=== PATIENT | female | born 1940 | race Caucasian/White ===

== ENCOUNTER 2017-10-17 05:27 | Inpatient (IN) | payer MEDICARE, OTHER ==
[2017-10-17 06:23] LABS: Hemoglobin 15.8 g/dL (12.0-16.0); Mean Corpuscular HGB CONC 34.2 g/dL (32.0-36.0); Mean Corpuscular Hemoglobin 26.1 pg (27.0-31.0); Mean Corpuscular Volume 76.3 fl (81.0-99.0); Mean Platelet Volume 7.7 fL (7.4-10.4); Platelet Count 187 thou/uL (130-400); RBC Distribution Width 11.7 % (11.5-14.5); Red Blood Cell (RBC) Count 6.04 mill/uL (4.20-5.40); White Blood Cell (WBC) Count 13.6 thou/uL (4.8-10.8)
[2017-10-17 06:32] LABS: ALT (SGPT) 7 U/L (8-55); AST (SGOT) 10 U/L (5-34); Albumin 3.7 g/dL (3.4-4.8); Alkaline Phosphatase 145 U/L (40-150); Anion Gap 15 mmol/L (10-20); BUN (Urea Nitrogen) 20 mg/dL (9.8-20.1); Bilirubin, Total 0.3 mg/dL (0.2-1.2); Calc. Creatinine Clearance 0 mL/min (70-130); Calcium 9.8 mg/dL (7.8-10.44); Carbon Dioxide 26 mmol/L (23-31); Chloride 97 mmol/L (98-107); Estimated GFR-MDRD 50; Globulin 3.4 g/dL (2.4-3.5); Glucose 460 mg/dL (83-110); Magnesium 1.7 mg/dL (1.6-2.6); Potassium 3.9 mmol/L (3.5-5.1); Protein, Total 7.1 g/dL (6.0-8.3); Sodium 134 mmol/L (136-145)
[2017-10-17 06:37] LABS: CKMB 0.4 ng/mL (0-6.6); Troponin I Less than 0.010 ng/mL (< 0.028)
[2017-10-17 06:38] LABS: #Basophils 0.1 thou/uL (0.0-0.2); #Eosinphils 0.2 thou/uL (0.0-0.7); #Lymphocytes 2.3 thou/uL (1.20-3.40); #Monocytes 1.3 thou/uL (0.11-0.59); #Neutrophils 9.7 thou/uL (1.40-6.50); %Basophils 0.9 % (0.0-1.0); %Eosinophils 1.6 % (0.0-10.0); %Lymphocytes 16.9 % (21.0-51.0); %Monocytes 9.4 % (0.0-10.0); %Neutrophils 71.3 % (42.0-75.0)
[2017-10-17 06:39] LABS: RBC Morphology Normal
[2017-10-17 06:53] LABS: Bilirubin Negative (Negative); Blood, Urine Negative (Negative); Clarity CLEAR (Clear); Glucose, Urine (Dipstick) >=1000 mg/dL (Negative); Leukocyte Negative (Negative); Nitrite Negative (Negative); Protein, Urine (Dipstick) Negative (Neg-Trace); Specific Gravity, Urine 1.017 (1.002-1.036); Urobilinogen 0.2 mg/dL (0.2-1.0)
[2017-10-17] MEDS ORDERED: Bisacodyl 5 MG TAB PO PRN (08:10)
[2017-10-17] MEDS ORDERED: Acetaminophen 650 MG Suppository PR PRN (08:10)
--- NOTE | 2017-10-17 08:50 | CT ---
PRELIMINARY REPORT/[facility]/EMERGENCY AFTER HOURS PROCEDURE: EXAM: CT Head Without Intravenous Contrast CLINICAL HISTORY: 77 years old, female; Signs and symptoms; Syncope and collapse; Patient HX: Additional history obtain ed from [facility], 77 y/o f with chf, cad, dm2, HTN, on plavix presents with syncopal episode. States she w as in her kitchen at 3am and became dizzy, then woke up on the ground. Crawled to front door and saw neighbor leaving for work. States she did hit the back of her head. Denies any pain currently and den ies any further injury. TECHNIQUE: Axial computed tomography images of the head/brain without intravenous contrast. COMPARISON: No relevant prior studies available. FINDINGS: Brain: There are chronic appearing lacunar infarcts in the left basal ganglia and left guadarrama radiate white matter. No hemorrhage or acute appearing edema. Ventricles: Unremarkable. No ventriculomegaly. Bones/joints: Benign hyperostosis frontalis is present. No acute fracture. Soft tissues: Unremarkable. Vasculature: There are moderate intracranial atherosclerotic vascular calcifications. Sinuses: There is complete right frontal sinus opacification and there is right ethmoid sinus mucosal thickening. Mastoid air cells: Unremarkable as visualized. No mastoid effusion. IMPRESSION: 1. There is no acute intracranial process. 2. There is frontal and ethmoid sinus disease. This interpretation was based upon the receipt of 57 image(s). Thank you for allowing us to participate in the care of your patient. Dictated and Authenticated by: Juan Hennessy DO 10/17/2017 6:57 AM Central Time ([place] & [place]) FINAL REPORT CT HEAD NONCONTRAST: Date: 10/17/17 FINDINGS/IMPRESSION: I agree with the above provided preliminary interpretation from [facility]. No acute intracranial hemorrhage or mass effect. Mild chronic ischemic disease with superimposed chronic-appearing lacunar infarctions. POS: [facility]
--- NOTE | 2017-10-17 08:52 | RAD ---
FRONTAL VIEW CHEST: Date: 10/17/17 COMPARISON: 01/28/17. INDICATION: Fall with pain, injury. FINDINGS: Postoperative changes of the chest with left-sided cardiac pacing device remain. Cardiac silhouette i s prominent, stable. There is mild prominence of pulmonary vasculature. No effusion or discrete pneum othorax. No lobar consolidation. IMPRESSION: Stable chest without evidence of mild CHF. POS: [facility]
[2017-10-17 09:20] VITALS: BMI 30.8
[2017-10-17] MEDS ORDERED: Dextrose 5% in Water 1,000 ML IV PRN (10:58)
[2017-10-17] MEDS ORDERED: Dextrose 50% Abboject 50 ML SYRINGE SLOW IVP PRN (10:58)
[2017-10-17] MEDS: HumaLOG 300 UNITS/3 ML VIAL SC PRN ×2 (11:46→17:37)
[2017-10-17] MEDS: Enoxaparin Sodium 40 MG/0.4 ML SYRINGE SC SCH (11:46)
[2017-10-17] MEDS ORDERED: Acetaminophen 500 MG TAB PO PRN (14:06)
--- NOTE | 2017-10-17 14:08 | HP ---
PRIMARY CARE PHYSICIAN: Benjamin López M.D. CHIEF COMPLAINT: Syncope. HISTORY OF PRESENT ILLNESS: Ms. Santana is a pleasant 77-year-old lady who was seen at [facility] on 10/17/2017. She reports that she was in her kitchen at 3:00 a.m. and felt dizzy. She tried to hold on to somethi ng. The next thing she remembers, she woke up on the ground. She thinks she may have been unconscio us for approximately 15 minutes. She has a lifeline alert, but she had settled for charging and coul d not reach it. She crawled to the front door and waited for somebody driving by the seizure. She w as finally noticed and she was brought to the emergency room. She reports that she hit the back of h er head on the floor. She denies any chest pain or shortness of breath. She denies any palpitations . She was seen by her cable television program director earlier this week and had her pacemaker interrogated. During that c linical visit, she was found to have elevated blood pressure. Her blood pressure medications were re sumed. Of note, the patient was hospitalized at this facility in 01/2017 for syncope. Her antihypertensives were decreased because it was felt that the cause of syncope was orthostatic hypotension. REVIEW OF SYSTEMS: The following complete review of systems was negative, unless otherwise mentioned in the HPI or below: Constitutional: Weight loss or gain, ability to conduct usual activities. Skin: Rash, itching. Eyes: Double vision, pain. ENT/Mouth: Nose bleeding, neck stiffness, pain, tenderness. Cardiovascular: Palpitations, dyspnea on exertion, orthopnea. Respiratory: Shortness of breath, wheezing, cough, hemoptysis, fever or night sweats. Gastrointestinal: Poor appetite, abdominal pain, heartburn, nausea, vomiting, constipation, or diarrhea. Genitourinary: Urgency, frequency, dysuria, nocturia. Musculoskeletal: Pain, swelling. Neurologic/Psychiatric: Anxiety, depression. Allergy/Immunologic: Skin rash, bleeding tendency. PAST MEDICAL HISTORY: Significant for hypertension, dyslipidemia, coronary artery disease, diabetes mellitus, urinary incontinence, and obesity. PAST SURGICAL HISTORY: Significant for coronary artery bypass graft, hysterectomy, PCI with stent, p acemaker. SOCIAL HISTORY: The patient denies tobacco use, alcohol use or recreational drug use. FAMILY HISTORY: Significant for heart disease. ALLERGIES: MORPHINE. CURRENT MEDICATIONS: Coreg 12.5 mg 2 times a day, Protonix 40 mg daily, Crestor 40 mg daily, lisinop ril/hydrochlorothiazide 20/12.5 mg daily, Plavix 75 mg daily, zolpidem 10 mg at bedtime, escitalopram 20 mg daily, glipizide 5 mg daily, Multaq 400 mg 2 times a day, vitamin E 400 units daily, vitamin B 12 1000 mcg daily, amlodipine 10 mg daily, atorvastatin 80 mg daily. CODE STATUS: I discussed her code status. She is FULL CODE. Her son, Harley, is the surrogate luis antonio on maker. PHYSICAL EXAMINATION: GENERAL: Ms. Santana is awake and alert, not in acute distress. VITAL SIGNS: Blood pressure is 136/64, pulse is 60. She is breathing at rate of 16, and saturating 95% on room air. She is afebrile. She does have a borderline orthostatic hypotension with a supine blood pressure of 136/64 and standing blood pressure of 117/54. EYES: No scleral icterus. No clinical pallor. ENT: Moist mucosal membranes. No oropharyngeal erythema or exudates. NECK: Supple, nontender, normal range of movement. Trachea is midline. RESPIRATORY: Accessory muscles of breathing are not active. Chest wall movements are symmetric bila terally. LUNGS: Clear to auscultation without wheeze, rhonchi or crepitations. CARDIOVASCULAR: S1 and S2 are heard, regular. LUNGS: Peripheral pulses palpable. No carotid bruit. No pericardial rub. ABDOMEN: Soft, nontender, bowel sounds heard, no hepatomegaly, no splenomegaly. NEUROLOGIC: Cranial nerves II-XII intact. Deep tendon reflexes are 2+. MUSCULOSKELETAL: Power is 5/5 in all 4 extremities. Normal range of movement at all major extremity joints. SKIN: No rashes or subcutaneous nodules. No scalp lacerations. PSYCHIATRIC: Normal mood, normal affect, the patient is oriented to person, place, and time. LABORATORY DATA: Ms. Santana's labs and investigations were reviewed. I reviewed her electrocardiogra m, which shows electronic atrial paced rhythm. No ST changes to suggest an acute coronary syndrome. I also reviewed her chest x-ray, which does not show any pulmonary infiltrates. She also had a nonc ontrast CT scan of the brain, which did not show any acute abnormalities. She has leukocytosis with 13,600 white cells, of which 71% are neutrophils, normal hemoglobin, normal platelet count, decreased sodium of 134, normal creatinine, elevated glucose of 460, unremarkable liver profile, normal TSH an d normal cortisol. Troponin I is normal. BNP is normal. Urinalysis is positive for glucose. ASSESSMENT AND PLAN: Ms. Santana is a pleasant 77-year-old lady who was seen at [facility] on 10/17/2017. Her problem list includes: 1. Syncope: Most likely secondary to orthostatic hypotension. She will be admitted to the hospital for further workup including secured entrance monitor. I will decrease her beta linette dose as well as AC E inhibitor dose and hold her thiazide diuretic as well as amlodipine. We will recheck her orthostat ic vitals. 2. Diabetes mellitus. 3. Poorly controlled. We will continue her home medications and start Accu-Cheks and insulin slidin g scale. On further questioning, the patient reports that she really does not watch her diet anymore since her and son , and she does not see a point to eat. Counseled regarding diabetic d iet. 4. Coronary artery disease: Stable. 5. Hypertension: Monitor vital signs, titrate antihypertensives as needed. 6. Dyslipidemia: Continue statin. Many thanks for allowing me to participate in your patient's care. Please feel free to contact me wi th any questions or concerns. LEVEL OF RISK: High. LEVEL OF COMPLEXITY: High.
[2017-10-17] MEDS ORDERED: Naproxen 500 MG TAB PO PRN (15:00)
[2017-10-17] MEDS: Carvedilol 3.125 MG TAB PO SCH (17:37)
[2017-10-17] MEDS: Dronedarone HCl 400 MG TAB PO SCH (17:37)
--- NOTE | 2017-10-17 17:51 | CON ---
DATE OF CONSULTATION: 10/17/2017 HISTORY OF PRESENT ILLNESS: The patient is a 77-year-old woman, who presented after losing consciousness. The patient has a long history of coronary artery disease. She is previously status post coronary artery bypass graft surgery. The patient also has undergone PTCA and stent placement into a saphenous vein to the right coronary artery. The patient has diffuse coronary artery disease and has been treated with medical therapy. She has a long history of noncompliance. She also has history of atrial fibrillation, and has been on Multaq. The patient was in her usual state of health until 2 days ago. She ran out of several medications,and her blood pressure became elevated. She was restarted on several medications. The patient yesterday suddenly lost consciousness. She was standing and fell. She denied having any chest discomfort or palpitations. PAST MEDICAL HISTORY: 1. Coronary artery disease. 2. Atrial fibrillation. 3. Hypertension. 4. Diabetes mellitus. 5. Dyslipidemia. PAST SURGICAL HISTORY: Coronary artery bypass surgery, hysterectomy. SOCIAL HISTORY: Nonsmoker. FAMILY HISTORY: Positive family history of heart disease. ALLERGIES: MORPHINE. MEDICATIONS: See nursing list. REVIEW OF SYSTEMS: No history of easy bruising. The patient denies any bright red blood per rectum, hematuria, or dysuria. Ten-point system is unremarkable. PHYSICAL EXAMINATION: GENERAL: This is an obese woman, in no acute distress. VITAL SIGNS: Blood pressure was 127/51 sitting and 117/55 standing. NECK: Showed no jugular venous distention. LUNGS: Clear to auscultation. HEART: Regular rate and rhythm, normal S1, S2 with a 1/6 systolic murmur. ABDOMEN: Nondistended. EXTREMITIES: Showed trace edema. LABORATORY RESULTS: Revealed her to have sodium 134, potassium 3.9, chloride 97 , bicarbonate 26, BUN 20, creatinine is 1.0, glucose 406. Troponin less than 0.01. Her EKG revealed an electronic atrial pacemaker and ST-T wave abnormality suggestive of ischemia. IMPRESSION: 1. Syncope. 2. History of coronary artery bypass surgery: 3. History of percutaneous transluminal coronary angioplasty and stent placement in the right coronary artery graft. 4. History of pacemaker placement. 5. Dyslipidemia. 6. Hypertension. 7. Diabetes mellitus. 8. Noncompliance. This patient presents with a syncopal episode. She was restarted on several medications after being noncompliant. From a cardiac standpoint, would use lower doses of her medication. We will follow this patient with you through her hospitalization. SCOTT
[2017-10-17] MEDS: diphenhydrAMINE 25 MG CAP PO PRN (19:37)
[2017-10-17] MEDS: Acetaminophen 325 MG TAB PO PRN (19:37)
[2017-10-17] MEDS ORDERED: Atorvastatin Calcium 40 MG TAB PO SCH (21:00)
[2017-10-17] MEDS ORDERED: Non-Formulary Item 1 EACH (Rosuvastatin Calcium [Crestor] 40 MG) PO SCH (21:00)
[2017-10-18] MEDS: Acetaminophen 325 MG TAB PO PRN ×2 (03:04→08:36)
[2017-10-18 04:55] LABS: #Basophils 0.1 thou/uL (0.0-0.2); #Eosinphils 0.2 thou/uL (0.0-0.7); #Monocytes 1.1 thou/uL (0.11-0.59); #Neutrophils 3.4 thou/uL (1.40-6.50); %Basophils 1.1 % (0.0-1.0); %Eosinophils 2.6 % (0.0-10.0); %Lymphocytes 38.3 % (21.0-51.0); %Monocytes 14.3 % (0.0-10.0); %Neutrophils 43.7 % (42.0-75.0); Hemoglobin 14.3 g/dL (12.0-16.0); Mean Corpuscular HGB CONC 33.7 g/dL (32.0-36.0); Mean Corpuscular Hemoglobin 26.5 pg (27.0-31.0); Mean Corpuscular Volume 78.5 fl (81.0-99.0); Platelet Count 162 thou/uL (130-400); RBC Distribution Width 11.8 % (11.5-14.5); Red Blood Cell (RBC) Count 5.41 mill/uL (4.20-5.40); White Blood Cell (WBC) Count 7.7 thou/uL (4.8-10.8)
[2017-10-18 05:12] LABS: Anion Gap 10 mmol/L (10-20); BUN (Urea Nitrogen) 24 mg/dL (9.8-20.1); Calc. Creatinine Clearance 56 mL/min (70-130); Calcium 9.4 mg/dL (7.8-10.44); Carbon Dioxide 31 mmol/L (23-31); Chloride 99 mmol/L (98-107); Estimated GFR-MDRD 46; Glucose 247 mg/dL (83-110); Potassium 3.9 mmol/L (3.5-5.1); Sodium 136 mmol/L (136-145)
[2017-10-18] MEDS: HumaLOG 300 UNITS/3 ML VIAL SC PRN ×2 (05:51→12:11)
[2017-10-18] MEDS: glipiZIDE 5 MG TAB PO SCH (08:34)
[2017-10-18] MEDS: Cyanocobalamin (Vitamin B-12) 1,000 MCG TAB PO SCH (08:35)
[2017-10-18] MEDS: Escitalopram Oxalate 20 mg Tablet PO SCH (08:36)
[2017-10-18] MEDS: Aspirin 325 MG TAB PO SCH (08:36)
[2017-10-18] MEDS: Vitami E (Dl,Tocopheryl Acet) 400 UNITS CAP PO SCH (08:36)
[2017-10-18] MEDS: Clopidogrel Bisulfate 75 MG TAB PO SCH (08:36)
[2017-10-18] MEDS: Dronedarone HCl 400 MG TAB PO SCH ×2 (08:36→16:51)
[2017-10-18] MEDS: Carvedilol 3.125 MG TAB PO SCH (08:37)
[2017-10-18] MEDS: Enoxaparin Sodium 40 MG/0.4 ML SYRINGE SC SCH (08:37)
[2017-10-18] MEDS ORDERED: Lisinopril 2.5 MG TAB PO SCH (09:00)
[2017-10-18] MEDS: Ondansetron ODT 4 MG TAB PO PRN (16:51)
--- NOTE | 2017-10-18 17:26 | PDOC.PN ---
- Subjective Encounter Start Date: 10/18/17 Encounter Start Time: 17:25 Pt seen for followup re: orthostatic hypotension. Denies chest pain, shortness of breath, fevers or chills. - Objective Resuscitation Status: Resuscitation Status FULL:Full Resuscitation MAR Reviewed: Yes Vital Signs & Weight: Vital Signs (12 hours) Temp Pulse Resp BP BP BP BP 10/18/17 16:04 98.1 F 60 18 171/70 H 10/18/17 13:05 62 149/59 H 103/52 L 10/18/17 11:23 98.3 F 60 18 149/66 H 10/18/17 08:35 60 162/74 H 10/18/17 08:13 97.6 F 60 16 10/18/17 07:31 97.6 F 60 16 181/76 H BP Pulse Ox 10/18/17 16:04 96 10/18/17 13:05 145/65 H 10/18/17 11:23 95 10/18/17 08:35 10/18/17 08:13 10/18/17 07:31 95 Weight Weight 185 lb 14.4 oz I&O: 10/17/17 10/18/17 10/19/17 06:59 06:59 06:59 Intake Total 720 Output Total 1475 350 Balance -755 -350 Result Diagrams: 10/18/17 04:29 10/18/17 04:29 Additional Labs: Accuchecks 10/18/17 10/18/17 10/18/17 16:42 11:00 05:38 POC Glucose 147 H 244 H 220 H 10/17/17 19:34 POC Glucose 257 H EKG Reviewed by me: Yes (Tele: electronic A-paced) Phys Exam - Physical Examination Constitutional: NAD HEENT: PERRLA, moist MMs, sclera anicteric, oral pharynx no lesions Neck: no nodes, no JVD, supple, full ROM Respiratory: no wheezing, no rales, no rhonchi, clear to auscultation bilateral Cardiovascular: RRR, no rub Gastrointestinal: soft, non-tender, no distention, positive bowel sounds Neurological: moves all 4 limbs Psychiatric: normal affect, A&O x 3 Skin: no rash Dx/Plan (1) Orthostatic hypotension Code(s): I95.1 - ORTHOSTATIC HYPOTENSION Status: Acute Comment: Cortisol and TSH normal. Apply pressure stockings, continue to monitor orthostatic vitals. Anti hypertensives discontinued. Ambulate patient. Consider midodrine if not improving. (2) Diabetes mellitus Code(s): E11.9 - TYPE 2 DIABETES MELLITUS WITHOUT COMPLICATIONS Status: Chronic Comment: Poor control of blood sugars. Pt reports not following diabetic diet, counseled pt. Does not want to see dietitian. (3) Coronary artery disease Code(s): I25.10 - ATHSCL HEART DISEASE OF [place] CORONARY ARTERY W/O ANG PCTRS Status: Chronic Comment: stable. (4) Hyperlipidemia Code(s): E78.5 - HYPERLIPIDEMIA, UNSPECIFIED Status: Chronic Comment: continue statin. (5) Hypertension Code(s): I10 - ESSENTIAL (PRIMARY) HYPERTENSION Status: Chronic Comment: Antihypertensives discontinued due to orthostatic hypotension and syncope. (6) Syncope Code(s): R55 - SYNCOPE AND COLLAPSE Status: Resolved Comment: No recurrence - Plan * . Review of Systems - Review of Systems Constitutional: negative: fever, chills, sweats, weakness Respiratory: negative: Cough, Shortness of Breath, Hemoptysis, SOB with Excertion, Pleuritic Pain, Wheezing Cardiovascular: light headedness. negative: chest pain, palpitations, orthopnea , paroxysmal nocturnal dyspnea, edema Genitourinary: negative: Dysuria, Frequency, Incontinence, Hematuria, Retention Neurological: Other (Light-headedness) - Medications/Allergies Allergies/Adverse Reactions: Allergies Allergy/AdvReac Type Severity Reaction Status Date / Time morphine Allergy Anaphylaxis Verified 01/29/17 00:24 Medications: Current Medications Acetaminophen (Tylenol) 650 mg PO Q4H PRN PRN Reason: Headache/Fever or Pain Last Admin: 10/18/17 08:36 Dose: 650 mg Acetaminophen (Tylenol) 650 mg [place] Q4H PRN PRN Reason: Headache/Fever or Pain Acetaminophen (Tylenol) 500 mg PO Q8HR PRN PRN Reason: NIGHTTIME PAIN Aspirin (Aspirin) 325 mg PO DAILY [facility] Last Admin: 10/18/17 08:36 Dose: 325 mg Atorvastatin Calcium (Lipitor) 80 mg PO HS [facility] Bisacodyl (Dulcolax) 10 mg PO DAILYPRN PRN PRN Reason: Constipation Clopidogrel Bisulfate (Plavix) 75 mg PO DAILY [facility] Last Admin: 10/18/17 08:36 Dose: 75 mg Cyanocobalamin (Vitamin B-12) 1,000 mcg PO DAILY [facility] Last Admin: 10/18/17 08:35 Dose: 1,000 mcg Dextrose/Water (Dextrose 50%) 25 gm SLOW IVP PRN PRN PRN Reason: Hypoglycemia Diphenhydramine HCl (Benadryl) 25 mg PO Q8H PRN PRN Reason: NIGHTTIME PAIN Last Admin: 10/17/17 19:37 Dose: 25 mg Dronedarone (Multaq) 400 mg PO BID-[facility] Last Admin: 10/18/17 16:51 Dose: 400 mg Enoxaparin Sodium (Lovenox) 40 mg SC 0900 [facility] Last Admin: 10/18/17 08:37 Dose: 40 mg Escitalopram Oxalate (Lexapro) 20 mg PO DAILY [facility] Last Admin: 10/18/17 08:36 Dose: 20 mg Glipizide (Glucotrol) 5 mg PO DAILY-[facility] Last Admin: 10/18/17 08:34 Dose: 5 mg Glucagon (Glucagon) 1 mg IM PRN PRN PRN Reason: Hypoglycemia Dextrose/Water (D5w) 1,000 mls @ 0 mls/hr IV .Q0M PRN; As Directed PRN Reason: Hypoglycemia Insulin Human Lispro (Humalog) 0 units SC .MILD SLIDING SCALE PRN PRN Reason: Mild Correctional Scale Last Admin: 10/18/17 12:11 Dose: 3 unit Naproxen (Naprosyn) 250 mg PO Q8HR PRN PRN Reason: Pain Non-Formulary Medication (Rosuvastatin Calcium [Crestor]) 40 mg PO HS [facility] Ondansetron HCl (Zofran Odt) 4 mg PO Q8HR PRN PRN Reason: Nausea Last Admin: 10/18/17 16:51 Dose: 4 mg Pantoprazole Sodium (Protonix) 40 mg PO [facility] Last Admin: 10/18/17 16:51 Dose: 40 mg Vitamin E (Vitamin E) 400 units PO DAILY [facility] Last Admin: 10/18/17 08:36 Dose: 400 units Zolpidem Tartrate (Ambien) 10 mg PO HS PRN PRN Reason: Insomnia
[2017-10-18] MEDS: diphenhydrAMINE 25 MG CAP PO PRN (21:40)
[2017-10-19 05:27] LABS: #Basophils 0.1 thou/uL (0.0-0.2); #Eosinphils 0.2 thou/uL (0.0-0.7); #Lymphocytes 2.8 thou/uL (1.20-3.40); #Monocytes 1.3 thou/uL (0.11-0.59); #Neutrophils 4.9 thou/uL (1.40-6.50); %Basophils 0.8 % (0.0-1.0); %Eosinophils 2.1 % (0.0-10.0); %Monocytes 14.2 % (0.0-10.0); %Neutrophils 52.9 % (42.0-75.0); Hemoglobin 14.5 g/dL (12.0-16.0); Mean Corpuscular HGB CONC 33.9 g/dL (32.0-36.0); Mean Corpuscular Hemoglobin 26.7 pg (27.0-31.0); Mean Corpuscular Volume 78.8 fl (81.0-99.0); Mean Platelet Volume 8.1 fL (7.4-10.4); Platelet Count 157 thou/uL (130-400); RBC Distribution Width 11.8 % (11.5-14.5); Red Blood Cell (RBC) Count 5.42 mill/uL (4.20-5.40); White Blood Cell (WBC) Count 9.2 thou/uL (4.8-10.8)
[2017-10-19 05:33] LABS: Anion Gap 10 mmol/L (10-20); BUN (Urea Nitrogen) 19 mg/dL (9.8-20.1); Calc. Creatinine Clearance 60 mL/min (70-130); Calcium 9.2 mg/dL (7.8-10.44); Carbon Dioxide 30 mmol/L (23-31); Chloride 102 mmol/L (98-107); Estimated GFR-MDRD 50; Glucose 154 mg/dL (83-110); Potassium 3.9 mmol/L (3.5-5.1); Sodium 138 mmol/L (136-145)
[2017-10-19] MEDS: Vitami E (Dl,Tocopheryl Acet) 400 UNITS CAP PO SCH (08:09)
[2017-10-19] MEDS: Escitalopram Oxalate 20 mg Tablet PO SCH (08:10)
[2017-10-19] MEDS: Cyanocobalamin (Vitamin B-12) 1,000 MCG TAB PO SCH (08:10)
[2017-10-19] MEDS: Aspirin 325 MG TAB PO SCH (08:10)
[2017-10-19] MEDS: Clopidogrel Bisulfate 75 MG TAB PO SCH (08:10)
[2017-10-19] MEDS: Dronedarone HCl 400 MG TAB PO SCH ×2 (08:10→16:46)
[2017-10-19] MEDS: glipiZIDE 5 MG TAB PO SCH (08:10)
[2017-10-19] MEDS: Enoxaparin Sodium 40 MG/0.4 ML SYRINGE SC SCH (09:00)
[2017-10-19] MEDS: HumaLOG 300 UNITS/3 ML VIAL SC PRN ×2 (10:59→16:50)
--- NOTE | 2017-10-19 12:52 | PDOC.PN ---
- Subjective Encounter Start Date: 10/19/17 Encounter Start Time: 10:00 Subjective: no dizziness, still doesn't feel at her baseline -: is worried might pass out after going home -: no chest pain or palp - Objective Resuscitation Status: Resuscitation Status FULL:Full Resuscitation MAR Reviewed: Yes Vital Signs & Weight: Vital Signs (12 hours) Temp Pulse Resp BP BP BP BP 10/19/17 11:42 98.3 F 61 16 153/67 H 10/19/17 08:00 98.2 F 63 18 10/19/17 07:31 98.2 F 63 18 186/79 H 188/79 H 10/19/17 04:22 97.5 F L 65 18 149/71 H BP Pulse Ox 10/19/17 11:42 96 10/19/17 08:00 10/19/17 07:31 192/77 H 98 10/19/17 04:22 98 Weight Weight 185 lb I&O: 10/18/17 10/19/17 10/20/17 06:59 06:59 06:59 Intake Total 720 1080 Output Total 1475 1800 Balance -755 -720 Result Diagrams: 10/19/17 04:44 10/19/17 04:44 Additional Labs: Accuchecks 10/19/17 10/18/17 10/18/17 10:51 19:34 16:42 POC Glucose 226 H 174 H 147 H Phys Exam - Physical Examination HEENT: PERRLA, moist MMs Neck: no JVD, supple Respiratory: no wheezing, no rales Cardiovascular: RRR, no significant murmur Gastrointestinal: soft, non-tender, positive bowel sounds Musculoskeletal: no edema, pulses present Neurological: non-focal, moves all 4 limbs Psychiatric: A&O x 3 Dx/Plan (1) Orthostatic hypotension Code(s): I95.1 - ORTHOSTATIC HYPOTENSION Status: Acute (2) Diabetes mellitus Code(s): E11.9 - TYPE 2 DIABETES MELLITUS WITHOUT COMPLICATIONS Status: Chronic Qualifiers: Diabetes mellitus type: type 2 Diabetes mellitus assisted insulin use: without assisted use Diabetes mellitus complication status: with hyperglycemia Qualified Code(s): E11.65 - Type 2 diabetes mellitus with hyperglycemia (3) Coronary artery disease Code(s): I25.10 - ATHSCL HEART DISEASE OF [place] CORONARY ARTERY W/O ANG PCTRS Status: Chronic Qualifiers: Coronary Disease-Associated Artery/Lesion type: bypass graft [place] vs. transplanted heart: [place] heart Associated angina: without angina Qualified Code(s): I25.810 - Atherosclerosis of coronary artery bypass graft(s) without angina pectoris Comment: stable. (4) Hyperlipidemia Code(s): E78.5 - HYPERLIPIDEMIA, UNSPECIFIED Status: Chronic Qualifiers: Hyperlipidemia type: unspecified Qualified Code(s): E78.5 - Hyperlipidemia , unspecified Comment: continue statin. (5) Hypertension Code(s): I10 - ESSENTIAL (PRIMARY) HYPERTENSION Status: Chronic Qualifiers: Hypertension type: essential hypertension Qualified Code(s): I10 - Essential (primary) hypertension (6) Syncope Code(s): R55 - SYNCOPE AND COLLAPSE Status: Resolved Comment: No recurrence (7) Afib Code(s): I48.91 - UNSPECIFIED ATRIAL FIBRILLATION Status: Chronic Qualifiers: Atrial fibrillation type: chronic Qualified Code(s): I48.2 - Chronic atrial fibrillation - Plan htn is uncontrolled, meds are being optimized by -: on multaq, asp, plavix -: known h/o noncompliance with meds -: to ambulate as tolerated -: change status to inpt, likely dc in am if stable * . Review of Systems - Medications/Allergies Allergies/Adverse Reactions: Allergies Allergy/AdvReac Type Severity Reaction Status Date / Time morphine Allergy Anaphylaxis Verified 01/29/17 00:24 Medications: Current Medications Acetaminophen (Tylenol) 650 mg PO Q4H PRN PRN Reason: Headache/Fever or Pain Last Admin: 10/18/17 08:36 Dose: 650 mg Acetaminophen (Tylenol) 650 mg [place] Q4H PRN PRN Reason: Headache/Fever or Pain Acetaminophen (Tylenol) 500 mg PO Q8HR PRN PRN Reason: NIGHTTIME PAIN Last Admin: 10/18/17 21:39 Dose: 500 mg Amlodipine Besylate (Norvasc) 2.5 mg PO BID [facility] Aspirin (Aspirin) 325 mg PO DAILY [facility] Last Admin: 10/19/17 08:10 Dose: 325 mg Atorvastatin Calcium (Lipitor) 80 mg PO HS [facility] Bisacodyl (Dulcolax) 10 mg PO DAILYPRN PRN PRN Reason: Constipation Clopidogrel Bisulfate (Plavix) 75 mg PO DAILY [facility] Last Admin: 10/19/17 08:10 Dose: 75 mg Cyanocobalamin (Vitamin B-12) 1,000 mcg PO DAILY [facility] Last Admin: 10/19/17 08:10 Dose: 1,000 mcg Dextrose/Water (Dextrose 50%) 25 gm SLOW IVP PRN PRN PRN Reason: Hypoglycemia Diphenhydramine HCl (Benadryl) 25 mg PO Q8H PRN PRN Reason: NIGHTTIME PAIN Last Admin: 10/18/17 21:40 Dose: 25 mg Dronedarone (Multaq) 400 mg PO BID[facility] Last Admin: 10/19/17 08:10 Dose: 400 mg Enoxaparin Sodium (Lovenox) 40 mg SC 0900 [facility] Last Admin: 10/19/17 09:00 Dose: 40 mg Escitalopram Oxalate (Lexapro) 20 mg PO DAILY [facility] Last Admin: 10/19/17 08:10 Dose: 20 mg Glipizide (Glucotrol) 5 mg PO DAILY-[facility] Last Admin: 10/19/17 08:10 Dose: 5 mg Glucagon (Glucagon) 1 mg IM PRN PRN PRN Reason: Hypoglycemia Dextrose/Water (D5w) 1,000 mls @ 0 mls/hr IV .Q0M PRN; As Directed PRN Reason: Hypoglycemia Insulin Human Lispro (Humalog) 0 units SC .MILD SLIDING SCALE PRN PRN Reason: Mild Correctional Scale Last Admin: 10/19/17 10:59 Dose: 3 unit Naproxen (Naprosyn) 250 mg PO Q8HR PRN PRN Reason: Pain Non-Formulary Medication (Rosuvastatin Calcium [Crestor]) 40 mg PO HS [facility] Ondansetron HCl (Zofran Odt) 4 mg PO Q8HR PRN PRN Reason: Nausea Last Admin: 10/18/17 16:51 Dose: 4 mg Pantoprazole Sodium (Protonix) [address] [facility] Last Admin: 10/19/17 10:59 Dose: 40 mg Vitamin E (Vitamin E) 400 units PO DAILY [facility] Last Admin: 10/19/17 08:09 Dose: 400 units Zolpidem Tartrate (Ambien) 10 mg PO HS PRN PRN Reason: Insomnia
[2017-10-19] MEDS: Atorvastatin Calcium 40 MG TAB PO SCH ×3 (15:28→20:11)
[2017-10-19] MEDS ORDERED: Amlodipine 5 MG TAB PO SCH (21:00)
[2017-10-19] MEDS: Zolpidem Tartrate 5 MG TAB PO PRN (22:59)
[2017-10-20 05:00] LABS: #Basophils 0.1 thou/uL (0.0-0.2); #Eosinphils 0.2 thou/uL (0.0-0.7); #Lymphocytes 2.3 thou/uL (1.20-3.40); #Monocytes 1.3 thou/uL (0.11-0.59); #Neutrophils 5.2 thou/uL (1.40-6.50); %Basophils 1.1 % (0.0-1.0); %Eosinophils 1.9 % (0.0-10.0); %Monocytes 14.6 % (0.0-10.0); %Neutrophils 57.4 % (42.0-75.0); Hemoglobin 14.1 g/dL (12.0-16.0); Mean Corpuscular HGB CONC 34.3 g/dL (32.0-36.0); Mean Corpuscular Hemoglobin 26.5 pg (27.0-31.0); Mean Corpuscular Volume 77.1 fl (81.0-99.0); Mean Platelet Volume 7.7 fL (7.4-10.4); Platelet Count 149 thou/uL (130-400); RBC Distribution Width 11.6 % (11.5-14.5); Red Blood Cell (RBC) Count 5.32 mill/uL (4.20-5.40); White Blood Cell (WBC) Count 9.1 thou/uL (4.8-10.8)
[2017-10-20 05:27] LABS: Anion Gap 10 mmol/L (10-20); BUN (Urea Nitrogen) 17 mg/dL (9.8-20.1); Calc. Creatinine Clearance 67 mL/min (70-130); Calcium 9.3 mg/dL (7.8-10.44); Carbon Dioxide 29 mmol/L (23-31); Chloride 102 mmol/L (98-107); Estimated GFR-MDRD 57; Glucose 166 mg/dL (83-110); Potassium 3.9 mmol/L (3.5-5.1); Sodium 137 mmol/L (136-145)
[2017-10-20] MEDS: Enoxaparin Sodium 40 MG/0.4 ML SYRINGE SC SCH (08:24)
[2017-10-20] MEDS: Vitami E (Dl,Tocopheryl Acet) 400 UNITS CAP PO SCH (08:24)
[2017-10-20] MEDS: Amlodipine 5 MG TAB PO SCH ×2 (08:25→20:42)
[2017-10-20] MEDS: Lisinopril 5 MG TAB PO SCH ×2 (08:25→20:43)
[2017-10-20] MEDS: Dronedarone HCl 400 MG TAB PO SCH ×2 (08:26→18:36)
[2017-10-20] MEDS: Aspirin 325 MG TAB PO SCH (08:26)
[2017-10-20] MEDS: glipiZIDE 5 MG TAB PO SCH (08:26)
[2017-10-20] MEDS: Escitalopram Oxalate 20 mg Tablet PO SCH (08:26)
[2017-10-20] MEDS: Clopidogrel Bisulfate 75 MG TAB PO SCH (08:26)
[2017-10-20] MEDS: Cyanocobalamin (Vitamin B-12) 1,000 MCG TAB PO SCH (08:26)
--- NOTE | 2017-10-20 11:19 | PDOC.PN ---
- Subjective Encounter Start Date: 10/20/17 Encounter Start Time: 09:40 Subjective: a bit lethargic this am, says took her usual sleeping pill -: no weakness, is moving all extremities -: no chest pain/palp - Objective MAR Reviewed: Yes Vital Signs & Weight: Vital Signs (12 hours) Temp Pulse Resp BP BP Pulse Ox 10/20/17 08:25 60 10/20/17 07:25 97.3 F L 60 20 177/75 H 98 10/20/17 04:06 98.4 F 61 18 183/75 H 96 Weight Weight 187 lb 8 oz I&O: 10/19/17 10/20/17 10/21/17 06:59 06:59 06:59 Intake Total 360 Output Total 600 Balance -240 Result Diagrams: 10/20/17 04:08 10/20/17 04:08 Additional Labs: Accuchecks 10/19/17 10/19/17 20:23 16:43 POC Glucose 118 H 231 H Phys Exam - Physical Examination HEENT: PERRLA, moist MMs Neck: no JVD, supple Respiratory: no wheezing, no rales Cardiovascular: RRR, no significant murmur Gastrointestinal: soft, non-tender, positive bowel sounds Musculoskeletal: no edema, pulses present Neurological: non-focal, moves all 4 limbs Psychiatric: normal affect, A&O x 3 Dx/Plan (1) Orthostatic hypotension Code(s): I95.1 - ORTHOSTATIC HYPOTENSION Status: Acute Comment: resolving (2) Diabetes mellitus Code(s): E11.9 - TYPE 2 DIABETES MELLITUS WITHOUT COMPLICATIONS Status: Chronic Qualifiers: Diabetes mellitus type: type 2 Diabetes mellitus snf insulin use: without snf use Diabetes mellitus complication status: with hyperglycemia Qualified Code(s): E11.65 - Type 2 diabetes mellitus with hyperglycemia (3) Coronary artery disease Code(s): I25.10 - ATHSCL HEART DISEASE OF [place] CORONARY ARTERY W/O ANG PCTRS Status: Chronic Qualifiers: Coronary Disease-Associated Artery/Lesion type: bypass graft [place] vs. transplanted heart: [place] heart Associated angina: without angina Qualified Code(s): I25.810 - Atherosclerosis of coronary artery bypass graft(s) without angina pectoris Comment: stable. (4) Hyperlipidemia Code(s): E78.5 - HYPERLIPIDEMIA, UNSPECIFIED Status: Chronic Qualifiers: Hyperlipidemia type: unspecified Qualified Code(s): E78.5 - Hyperlipidemia , unspecified Comment: continue statin. (5) Hypertension Code(s): I10 - ESSENTIAL (PRIMARY) HYPERTENSION Status: Chronic Qualifiers: Hypertension type: essential hypertension Qualified Code(s): I10 - Essential (primary) hypertension Comment: uncontrolled (6) Syncope Code(s): R55 - SYNCOPE AND COLLAPSE Status: Resolved Comment: No recurrence (7) Afib Code(s): I48.91 - UNSPECIFIED ATRIAL FIBRILLATION Status: Chronic Qualifiers: Atrial fibrillation type: chronic Qualified Code(s): I48.2 - Chronic atrial fibrillation - Plan increase norvasc 5mg bid, add lisinopril 10mg bid -: d/w -: counselled reg compliance with meds -: dc plan per cardio advice -: sbp around 177 this am * . Review of Systems - Medications/Allergies Allergies/Adverse Reactions: Allergies Allergy/AdvReac Type Severity Reaction Status Date / Time morphine Allergy Anaphylaxis Verified 01/29/17 00:24 Medications: Current Medications Acetaminophen (Tylenol) 650 mg PO Q4H PRN PRN Reason: Headache/Fever or Pain Last Admin: 10/18/17 08:36 Dose: 650 mg Acetaminophen (Tylenol) 650 mg SC Q4H PRN PRN Reason: Headache/Fever or Pain Acetaminophen (Tylenol) 500 mg PO Q8HR PRN PRN Reason: NIGHTTIME PAIN Last Admin: 10/18/17 21:39 Dose: 500 mg Amlodipine Besylate (Norvasc) 5 mg PO BID [facility] [place] Last Admin: 10/20/17 08:25 Dose: 5 mg Aspirin (Aspirin) 325 mg PO DAILY [facility] Last Admin: 10/20/17 08:26 Dose: 325 mg Atorvastatin Calcium (Lipitor) 80 mg PO HS [facility] [place] Last Admin: 10/19/17 20:11 Dose: 80 mg Bisacodyl (Dulcolax) 10 mg PO DAILYPRN PRN PRN Reason: Constipation Clopidogrel Bisulfate (Plavix) 75 mg PO DAILY [facility] [place] Last Admin: 10/20/17 08:26 Dose: 75 mg Cyanocobalamin (Vitamin B-12) 1,000 mcg PO DAILY [facility] [place] Last Admin: 10/20/17 08:26 Dose: 1,000 mcg Dextrose/Water (Dextrose 50%) 25 gm SLOW IVP PRN PRN PRN Reason: Hypoglycemia Diphenhydramine HCl (Benadryl) 25 mg PO Q8H PRN PRN Reason: NIGHTTIME PAIN Last Admin: 10/18/17 21:40 Dose: 25 mg Dronedarone (Multaq) 400 mg PO BID-[facility] Last Admin: 10/20/17 08:26 Dose: 400 mg Enoxaparin Sodium (Lovenox) 40 mg SC 0900 [facility] [place] Last Admin: 10/20/17 08:24 Dose: 40 mg Escitalopram Oxalate (Lexapro) 20 mg PO DAILY [facility] [place] Last Admin: 10/20/17 08:26 Dose: 20 mg Glipizide (Glucotrol) 5 mg PO DAILY-[facility] Last Admin: 10/20/17 08:26 Dose: 5 mg Glucagon (Glucagon) 1 mg IM PRN PRN PRN Reason: Hypoglycemia Dextrose/Water (D5w) 1,000 mls @ 0 mls/hr IV .Q0M PRN; As Directed PRN Reason: Hypoglycemia Insulin Human Lispro (Humalog) 0 units SC .MILD SLIDING SCALE PRN PRN Reason: Mild Correctional Scale Last Admin: 10/19/17 16:50 Dose: 3 unit Lisinopril (Zestril) 5 mg PO BID [facility] [place] Last Admin: 10/20/17 08:25 Dose: 5 mg Naproxen (Naprosyn) 250 mg PO Q8HR PRN PRN Reason: Pain Ondansetron HCl (Zofran Odt) 4 mg PO Q8HR PRN PRN Reason: Nausea Last Admin: 10/18/17 16:51 Dose: 4 mg Pantoprazole Sodium (Protonix) 40 mg PO [facility] Last Admin: 10/20/17 08:26 Dose: 40 mg Vitamin E (Vitamin E) 400 units PO DAILY [facility] Last Admin: 10/20/17 08:24 Dose: 400 units Zolpidem Tartrate (Ambien) 10 mg PO HS PRN PRN Reason: Insomnia Last Admin: 10/19/17 22:59 Dose: 10 mg
[2017-10-20] MEDS: Ondansetron ODT 4 MG TAB PO PRN (13:22)
[2017-10-20] MEDS: Acetaminophen 325 MG TAB PO PRN (13:24)
[2017-10-20] MEDS ORDERED: Atorvastatin Calcium 20 MG TAB PO SCH (21:00)
--- NOTE | 2017-10-20 21:46 | PRG ---
DATE OF SERVICE: 10/20/2017 SUBJECTIVE: Ms. Santana is doing better today. OBJECTIVE: GENERAL: She is awake and alert. VITAL SIGNS: Her blood pressure is still high at 195/81, pulse 62. LUNGS: Clear. CARDIAC: Normal S1, normal S2. ASSESSMENT: 1. Labile hypertension. 2. Recent surgery. PLAN: We will check the pacemaker tomorrow morning then release her home. We will follow as well.
[2017-10-20] MEDS: Zolpidem Tartrate 5 MG TAB PO PRN (22:26)
[2017-10-21] MEDS: glipiZIDE 5 MG TAB PO SCH (08:27)
[2017-10-21] MEDS: Amlodipine 5 MG TAB PO SCH (08:27)
[2017-10-21] MEDS: Dronedarone HCl 400 MG TAB PO SCH (08:27)
[2017-10-21] MEDS: Vitami E (Dl,Tocopheryl Acet) 400 UNITS CAP PO SCH (08:28)
[2017-10-21] MEDS: Escitalopram Oxalate 20 mg Tablet PO SCH (08:28)
[2017-10-21] MEDS: Cyanocobalamin (Vitamin B-12) 1,000 MCG TAB PO SCH (08:28)
[2017-10-21] MEDS: Lisinopril 5 MG TAB PO SCH (08:28)
[2017-10-21] MEDS: Clopidogrel Bisulfate 75 MG TAB PO SCH (08:28)
[2017-10-21] MEDS: Aspirin 325 MG TAB PO SCH (08:29)
[2017-10-21] MEDS: Enoxaparin Sodium 40 MG/0.4 ML SYRINGE SC SCH (08:34)
--- NOTE | 2017-10-21 11:25 | PDOC.PN ---
- Subjective Encounter Start Date: 10/21/17 Encounter Start Time: 08:00 Subjective: feels better, no sob or palp -: is amb in room - Objective MAR Reviewed: Yes Vital Signs & Weight: Vital Signs (12 hours) Temp Pulse Resp BP BP BP Pulse Ox 10/21/17 10:41 158/72 H 10/21/17 08:28 61 10/21/17 08:27 61 10/21/17 08:00 98.2 F 61 18 97 10/21/17 07:35 98.2 F 61 18 183/76 H 97 10/21/17 04:26 98 F 61 24 H 158/70 H 94 L 10/20/17 23:33 61 142/65 H Weight Weight 184 lb 14.4 oz I&O: 10/20/17 10/21/17 10/22/17 06:59 06:59 06:59 Intake Total 360 290 Output Total 600 550 Balance -240 -260 Result Diagrams: 10/20/17 04:08 10/20/17 04:08 Additional Labs: Accuchecks 10/21/17 10/21/17 10/20/17 10:46 04:32 20:43 POC Glucose 196 H 98 144 H 10/20/17 10/20/17 17:27 10:54 POC Glucose 177 H 187 H Phys Exam - Physical Examination HEENT: PERRLA, moist MMs Neck: no JVD, supple Respiratory: no wheezing, no rales Cardiovascular: RRR, no significant murmur Gastrointestinal: soft, non-tender, positive bowel sounds Musculoskeletal: no edema, pulses present Neurological: non-focal, moves all 4 limbs Psychiatric: A&O x 3 Dx/Plan (1) Orthostatic hypotension Code(s): I95.1 - ORTHOSTATIC HYPOTENSION Status: Resolved (2) Diabetes mellitus Code(s): E11.9 - TYPE 2 DIABETES MELLITUS WITHOUT COMPLICATIONS Status: Chronic Qualifiers: Diabetes mellitus type: type 2 Diabetes mellitus local [employer] insulin use: without intermediate use Diabetes mellitus complication status: with hyperglycemia Qualified Code(s): E11.65 - Type 2 diabetes mellitus with hyperglycemia (3) Coronary artery disease Code(s): I25.10 - ATHSCL HEART DISEASE OF [place] CORONARY ARTERY W/O ANG PCTRS Status: Chronic Qualifiers: Coronary Disease-Associated Artery/Lesion type: bypass graft [place] vs. transplanted heart: [place] heart Associated angina: without angina Qualified Code(s): I25.810 - Atherosclerosis of coronary artery bypass graft(s) without angina pectoris Comment: stable. (4) Hyperlipidemia Code(s): E78.5 - HYPERLIPIDEMIA, UNSPECIFIED Status: Chronic Qualifiers: Hyperlipidemia type: unspecified Qualified Code(s): E78.5 - Hyperlipidemia , unspecified Comment: continue statin. (5) Hypertension Code(s): I10 - ESSENTIAL (PRIMARY) HYPERTENSION Status: Chronic Qualifiers: Hypertension type: essential hypertension Qualified Code(s): I10 - Essential (primary) hypertension Comment: uncontrolled (6) Syncope Code(s): R55 - SYNCOPE AND COLLAPSE Status: Resolved Comment: No recurrence (7) Afib Code(s): I48.91 - UNSPECIFIED ATRIAL FIBRILLATION Status: Chronic Qualifiers: Atrial fibrillation type: chronic Qualified Code(s): I48.2 - Chronic atrial fibrillation - Plan for QPD pcm interrogation today -: likely home if above is normal -: htn is getting better, is asymptomatic as to dizziness/palp/chest pain -: to check BP and pulse twice daily, record, and f/u with PCP * . Review of Systems - Medications/Allergies Allergies/Adverse Reactions: Allergies Allergy/AdvReac Type Severity Reaction Status Date / Time morphine Allergy Anaphylaxis Verified 01/29/17 00:24 Medications: Current Medications Acetaminophen (Tylenol) 650 mg PO Q4H PRN PRN Reason: Headache/Fever or Pain Last Admin: 10/20/17 13:24 Dose: 650 mg Acetaminophen (Tylenol) 650 mg MD Q4H PRN PRN Reason: Headache/Fever or Pain Acetaminophen (Tylenol) 500 mg PO Q8HR PRN PRN Reason: NIGHTTIME PAIN Last Admin: 10/18/17 21:39 Dose: 500 mg Amlodipine Besylate (Norvasc) 5 mg PO BID [facility] Last Admin: 10/21/17 08:27 Dose: 5 mg Aspirin (Aspirin) 325 mg PO DAILY [facility] Last Admin: 10/21/17 08:29 Dose: 325 mg Atorvastatin Calcium (Lipitor) 80 mg PO HS [facility] Last Admin: 10/20/17 20:42 Dose: 80 mg Bisacodyl (Dulcolax) 10 mg PO DAILYPRN PRN PRN Reason: Constipation Clopidogrel Bisulfate (Plavix) 75 mg PO DAILY [facility] Last Admin: 10/21/17 08:28 Dose: 75 mg Cyanocobalamin (Vitamin B-12) 1,000 mcg PO DAILY [facility] Last Admin: 10/21/17 08:28 Dose: 1,000 mcg Dextrose/Water (Dextrose 50%) 25 gm SLOW IVP PRN PRN PRN Reason: Hypoglycemia Diphenhydramine HCl (Benadryl) 25 mg PO Q8H PRN PRN Reason: NIGHTTIME PAIN Last Admin: 10/18/17 21:40 Dose: 25 mg Dronedarone (Multaq) 400 mg PO BID-[facility] Last Admin: 10/21/17 08:27 Dose: 400 mg Enoxaparin Sodium (Lovenox) 40 mg SC 0900 [facility] Last Admin: 10/21/17 08:34 Dose: Not Given Escitalopram Oxalate (Lexapro) 20 mg PO DAILY [facility] Last Admin: 10/21/17 08:28 Dose: 20 mg Glipizide (Glucotrol) 5 mg PO DAILY-[facility] Last Admin: 10/21/17 08:27 Dose: 5 mg Glucagon (Glucagon) 1 mg IM PRN PRN PRN Reason: Hypoglycemia Dextrose/Water (D5w) 1,000 mls @ 0 mls/hr IV .Q0M PRN; As Directed PRN Reason: Hypoglycemia Insulin Human Lispro (Humalog) 0 units SC .MILD SLIDING SCALE PRN PRN Reason: Mild Correctional Scale Last Admin: 10/19/17 16:50 Dose: 3 unit Lisinopril (Zestril) 5 mg PO BID [facility] Last Admin: 10/21/17 08:28 Dose: 5 mg Naproxen (Naprosyn) 250 mg PO Q8HR PRN PRN Reason: Pain Ondansetron HCl (Zofran Odt) 4 mg PO Q8HR PRN PRN Reason: Nausea Last Admin: 10/20/17 13:22 Dose: 4 mg Pantoprazole Sodium (Protonix) 40 mg PO [facility] Last Admin: 10/21/17 08:27 Dose: 40 mg Vitamin E (Vitamin E) 400 units PO DAILY [facility] Last Admin: 10/21/17 08:28 Dose: 400 units Zolpidem Tartrate (Ambien) 10 mg PO HS PRN PRN Reason: Insomnia Last Admin: 10/20/17 22:26 Dose: 10 mg
[2017-10-21] MEDS: HumaLOG 300 UNITS/3 ML VIAL SC PRN (11:40)
[2017-10-21 12:02] VITALS: TEMP 98.7
[2017-10-21 12:04] VITALS: BP 167/73
--- NOTE | 2017-10-22 00:31 | DIS ---
DATE OF ADMISSION: 10/17/2017 DATE OF DISCHARGE: 10/21/2017 DISCHARGE DISPOSITION: To home. PRIMARY DISCHARGE DIAGNOSES: Dizziness with orthostatic hypotension, which was severe. SECONDARY DISCHARGE DIAGNOSES: Coronary artery disease, hypertension, diabetes mellitus type 2, dyslipidemia, chronic atrial fibrillation, which is rate controlled. PROCEDURES DONE DURING HOSPITALIZATION: Patient has had CT brain done, which showed no acute intracranial process. There is old lacunar infarct in the left basal ganglia and left guadarrama radiata. Chest x-ray done showed findings of mild volume overload with congestion. H&H 14 and 41, platelet count 149, MCV 77. Discharge BUN and creatinine is 17 and 0.9. TSH 2.10. Cardiac enzymes x1 were negative. BNP 34. DISCHARGE MEDICATIONS: Norvasc 5 mg p.o. twice daily, aspirin 325 mg p.o. daily , Coreg 3.125 mg p.o. twice daily, Plavix 75 mg p.o. daily, Multaq 400 mg p.o. twice daily, Lexapro 20 mg p.o. daily, vitamin B12 of 1000 mcg p.o. daily, glipizide 5 mg p.o. daily, lisinopril 5 mg p.o. twice daily, Protonix 40 mg p.o. daily, Crestor 40 mg p.o. at bedtime, Ambien 10 mg p.o. at bedtime p.r.n. ALLERGIES: MORPHINE. INPATIENT CONSULTS: Dr. Jay/Dr. Calderon for Cardiology. DISCHARGE PLAN: Patient to follow up with primary care physician in [address] Calderon as advised. She needs to check her blood pressures. Her blood pressure and pulse twice daily and record for a period of 10 days to follow up with primary care physician. BRIEF COURSE DURING HOSPITALIZATION: Patient initially felt dizzy in her kitchen around 3 in the morning and next thing she knew she woke up on the ground. She had syncopized for nearly 15 minutes or so. She finally crawled to the front door and managed to flag someone to get to the ER. On arrival in ER, patient has had a complete workup done. She was found to be in severe orthostasis. Her medications were all held and were slowly introduced. She has had extended period of monitoring on telemetry. The patient has remained stable on the current dose of Norvasc, small dose of lisinopril, both twice daily along with Multaq. A small dose of Coreg has been added today. She is otherwise hemodynamically stable and is ambulating in the room and eating well prior to discharge. Please see a face to face documentation on [facility] for the day of discharge. MTDD
== END 2017-10-21 15:22 | disposition home or self-care (01) | DRG 312 ==
LOC: ERS 05:27 → 2SW 07:39 → OBSVTOIN 10-19 11:21
PROVIDERS: ADMIT Family Medicine; ATTEND Family Medicine
DX: I95.1 Orthostatic hypotension (principal); E11.65 Type 2 diabetes mellitus with hyperglycemia; I48.2 Chronic atrial fibrillation; Z95.0 Presence of cardiac pacemaker; I25.10 Atherosclerotic heart disease of native coronary artery without angina pectoris; I10 Essential (primary) hypertension; E78.5 Hyperlipidemia, unspecified; Z91.14 Patient's other noncompliance with medication regimen; Z95.1 Presence of aortocoronary bypass graft
CPT/HCPCS: 36415; 36416; 70450; 71045; 80048; 80053; 81003; 82533; 82553; 83735; 83880; 84443; 84484; 85025; 93005; J1650; Q0162

== ENCOUNTER 2018-03-18 15:36 | Emergency (ER) | payer MEDICARE, OTHER ==
[2018-03-18] MEDS ORDERED: Lisinopril 10 MG TAB ONE (16:44)
[2018-03-18] MEDS ORDERED: Carvedilol 25 MG TAB ONE (16:44)
[2018-03-18] MEDS ORDERED: Amlodipine 5 MG TAB ONE (16:45)
[2018-03-18 17:20] LABS: #Basophils 0.2 thou/uL (0.0-0.2); #Eosinphils 0.2 thou/uL (0.0-0.7); #Lymphocytes 2.3 thou/uL (1.20-3.40); #Monocytes 1.1 thou/uL (0.11-0.59); #Neutrophils 5.5 thou/uL (1.40-6.50); %Basophils 1.9 % (0.0-1.0); %Eosinophils 1.7 % (0.0-10.0); %Lymphocytes 25.3 % (21.0-51.0); %Monocytes 12.2 % (0.0-10.0); %Neutrophils 58.9 % (42.0-75.0); Hemoglobin 15.9 g/dL (12.0-16.0); MDiff Complete? YES; Mean Corpuscular HGB CONC 33.2 g/dL (32.0-36.0); Mean Corpuscular Hemoglobin 24.4 pg (27.0-31.0); Mean Corpuscular Volume 73.6 fL (78.0-98.0); Mean Platelet Volume 7.7 fL (7.4-10.4); Microcytosis SLIGHT = 6-15 cells (100X) (0-5/hpf); PLT Morphology Comment Appears Adequate; Platelet Count 156 thou/uL (130-400); RBC Distribution Width 10.6 % (11.5-14.5); Red Blood Cell (RBC) Count 6.52 mill/uL (4.20-5.40); White Blood Cell (WBC) Count 9.3 thou/uL (4.8-10.8)
[2018-03-18 17:25] LABS: ALT (SGPT) 9 U/L (8-55); AST (SGOT) 14 U/L (5-34); Albumin 3.7 g/dL (3.4-4.8); Alkaline Phosphatase 132 U/L (40-150); Anion Gap 15 mmol/L (10-20); BUN (Urea Nitrogen) 13 mg/dL (9.8-20.1); Bilirubin, Total 0.5 mg/dL (0.2-1.2); Calc. Creatinine Clearance 0 mL/min (70-130); Calcium 9.4 mg/dL (7.8-10.44); Carbon Dioxide 26 mmol/L (23-31); Chloride 99 mmol/L (98-107); Estimated GFR-MDRD 71; Globulin 2.7 g/dL (2.4-3.5); Glucose 337 mg/dL (83-110); Potassium 3.8 mmol/L (3.5-5.1); Protein, Total 6.4 g/dL (6.0-8.3); Sodium 136 mmol/L (136-145)
[2018-03-18 17:26] LABS: CKMB 0.5 ng/mL (0-6.6); Troponin I Less than 0.010 ng/mL (< 0.028)
== END 2018-03-18 17:45 | disposition home or self-care (01) ==
LOC: SCSER 15:36
DX: I10 Essential (primary) hypertension (principal); E11.9 Type 2 diabetes mellitus without complications; E78.5 Hyperlipidemia, unspecified; I25.2 Old myocardial infarction; F32.9 Major depressive disorder, single episode, unspecified; F41.9 Anxiety disorder, unspecified; Z79.84 Long term (current) use of oral hypoglycemic drugs; Z79.899 Other long term (current) drug therapy
CPT/HCPCS: 80053; 82553; 84484; 85025; 99284